=== PATIENT | female | born 1970 ===

== ENCOUNTER → 2018-01-14 20:30 | Outpatient (CLI) | payer BC ==
[2018-01-14 21:08] LABS: BASOPHILS 0.6 % (0-2); EOSINOPHILS 3.1 % (0-7); HEMATOCRIT 36.2 % (36.0-48.0); HEMOGLOBIN 11.3 g/dL (12-16); IMMATURE GRANULOCYTES 1.2 % (0-5); LYMPHOCYTES 30.6 % (15-50); MCH 25.4 pg (26.0-34.0); MCHC 31.2 g/dL (31.0-37.0); MCV 81.3 fL (80.0-100.0); MEAN PLATELET VOLUME 8.6 fL (7.4-10.4); MONOCYTES 5.6 % (2-11); NEUTROPHILS 58.9 % (40-80); PLATELET COUNT 510 10x3/uL (130-400); RBC 4.45 10x6/uL (4.00-5.40); RDW 15.9 % (11.5-14.5); WBC 9.1 10x3/uL (4.8-10.8)
[2018-01-14 21:31] LABS: ALBUMIN 3.3 g/dL (3.4-5.0); ALKALINE PHOSPHATASE 73 U/L (46-116); ALT (SGPT) 27 U/L (10-68); BILIRUBIN - TOTAL 0.26 mg/dL (0.2-1.3); CALC OSMOLALITY 277 mosm/kg (275-300); CARBON DIOXIDE 24.2 mmol/L (21.0-32.0); CHLORIDE - SERUM 102 mmol/L (98-107); CREATININE - SERUM 0.7 mg/dL (0.6-1.3); GLUCOSE 103 mg/dL (74-106); MAGNESIUM - SERUM 2.4 mg/dL (1.8-2.4); PHOSPHOROUS 4.3 mg/dL (2.5-4.9); POTASSIUM - SERUM 4.7 mmol/L (3.5-5.1); PRE-ALBUMIN 32.7 mg/dL (18.0-35.7); PROTEIN - SERUM 7.9 g/dL (6.4-8.2); SODIUM 138 mmol/L (136-145); TRIGLYCERIDE 180 mg/dL (30-200); UREA NITROGEN 19 mg/dL (7-18); eGFR NON AFRICAN AMERICAN > 90 mL/min (90-120)
== END | disposition home or self-care (01) ==
LOC: D.LABREF 20:30
PROVIDERS: Surgery
DX: I63.9 Cerebral infarction, unspecified (principal); K95.09 Other complications of gastric band procedure; Z98.84 Bariatric surgery status